=== PATIENT | female | born 1985 | race American Indian/Alaskan Native ===

== ENCOUNTER 2017-03-10 11:00 | Outpatient (CLI) | payer MEDICAID | END 2017-03-10 11:01 | disposition home or self-care (01) | LOC: SLR 11:00 | PROVIDERS: ATTEND Specialist | DX: G47.30 Sleep apnea, unspecified (principal); E66.9 Obesity, unspecified; I10 Essential (primary) hypertension | CPT/HCPCS: G0399 ==

== ENCOUNTER 2017-03-11 08:53 | Day surgery (SDC) | payer MEDICAID ==
--- NOTE | 2017-03-10 09:42 | Anesthesia Consultation ---
Anesthesia Consult and Med Hx Date of service: 03/10/17 - Airway Anesthetic Teeth Evaluation: Good ROM Head & Neck: Adequate Mental/Hyoid Distance: Adequate Mallampati Class: Class II Intubation Access Assessment: Probably Good - Pulmonary Exam CTA: Yes - Cardiac Exam Cardiac Exam: RRR - Pre-Operative Health Status ASA Pre-Surgery Classification: ASA3 Proposed Anesthetic Plan: General - Pulmonary Hx Smoking: Yes (former) - Cardiovascular System Hx Hypertension: Yes (x 2yrs) - Central Nervous System Hx Psychiatric Problems: Yes - Endocrine Hx Non-Insulin Dependent Diabetes: Yes - Hematic Hx Anemia: Yes - Other Systems Hx Cancer: No Hx Obesity: Yes (morbid obesity)
[2017-03-10 09:43] LABS: Basophils % (Auto) 0.6 % (0.0-1.8); Eosinophils % (Auto) 1.7 % (0.0-4.3); Hematocrit 26.9 % (30.3-42.9); Hemoglobin 8.9 gm/dl (10.1-14.3); Mean Corpuscular HGB Conc 33 % (30-34); Mean Corpuscular Hemoglobin 28 pg (28-32); Mean Corpuscular Volume 85 fl (79-97); Platelet Count 706 K/mm3 (140-440); Red Blood Count 3.16 M/mm3 (3.65-5.03); Red Cell Distribution Width 13.6 % (13.2-15.2)
[2017-03-10 09:55] LABS: Anion Gap 18 mmol/L; BUN/Creatinine Ratio 13; Blood Urea Nitrogen 10 mg/dL (7-17); Calcium 8.8 mg/dL (8.4-10.2); Carbon Dioxide 24 mmol/L (22-30); Chloride 102.1 mmol/L (98-107); Glucose 122 mg/dL (65-100); Potassium 3.5 mmol/L (3.6-5.0); Sodium 141 mmol/L (137-145)
[2017-03-11] MEDS ORDERED: DIPRIVAN 10 MG/ML IV ONE ×2 (09:59→11:16)
[2017-03-11] MEDS ORDERED: DILAUDID ONE (09:59)
[2017-03-11] MEDS ORDERED: NACL 0.9% 1000 ML 1,000 ML IV SCH (10:00)
[2017-03-11] MEDS ORDERED: VERSED IV NR (10:00)
[2017-03-11] MEDS ORDERED: PEPCID PO NR (10:00)
[2017-03-11] MEDS ORDERED: SILVER NITRATE TP ONE (10:24)
--- NOTE | 2017-03-11 10:30 | Short Stay Summary ---
Short Stay Documentation Date of service: 03/11/17 Narrative H&P: Pt is a 31yo BF LMP 12/11/16 presents for surgical evaluation and treatment for prolonged heavy vaginal bleeding thought to be due to suspected endometrial polyps. Pelvic u/s showed the uterus 12 x 8 x 7cm with an irregular spongy- looking endometrium. She is now scheduled for a Hysteroscopy, Polypectomy with D&C. - History Principal diagnosis: Menorrhagia H&P: obtained from office Past Medical History: arrhythmia, anemia, arthritis, diabetes, hypertension, liver disease, other (Morbid obesity) Past Surgical History: Other (BTL; Knee surgery; Bladder surgery) Social history: no significant social history, single - Allergies and Medications Current Medications: Allergies Sulfa (Sulfonamide Antibiotics) Allergy (Verified 03/06/17 15:46) swelling, rash Home Medications Medication Instructions Recorded Confirmed Last Taken Type Ferrous Sulfate 325 mg PO DAILY 03/06/17 03/06/17 Unknown History Hydrochlorothiazide [HCTZ] 25 mg PO QDAY 03/06/17 03/06/17 Unknown History Banks-3 Fatty Acids/Fish Oil [Fish 1 each PO DAILY 03/06/17 03/06/17 Unknown History Oil] Omeprazole Magnesium [PriLOSEC Otc] 20 mg PO QDAY 03/06/17 03/06/17 Unknown History Topiramate [Topamax] 25 mg PO HS 03/06/17 03/06/17 Unknown History metFORMIN [Glucophage] 500 mg PO BID 03/06/17 03/06/17 Unknown History Active Medications Famotidine (Pepcid) 20 mg PO PREOP NR Stop: 03/11/17 12:00 Last Admin: 03/11/17 10:18 Dose: 20 mg Sodium Chloride (Nacl 0.9% 1000 Ml) 1,000 mls @ 100 mls/hr IV DIRECT LATA Last Admin: 03/11/17 10:19 Dose: 100 mls/hr Midazolam HCl (Versed) 2 mg IV PREOP NR Stop: 03/11/17 23:59 Last Admin: 03/11/17 10:19 Dose: 2 mg - Physical exam General appearance: no acute distress, obese Integumentary: no rash HEENT: Atraumatic Lungs: Clear to auscultation Breasts: deferred Heart: Regular rate Gastrointestinal: normal Female Genitourinary: deferred Rectal Exam: deferred Extremities: no ischemia Neurological: Normal speech - Brief post op/procedure progress note Date of procedure: 03/11/17 Pre-op diagnosis: 1. Dysfunctional uterine bleeding 2. Endometrial polyps Post-op diagnosis: same Procedure: 1. Hysteroscopy 2. Polypectomy 3. D&C Anesthesia: MAC Findings: A 12-14 weeks size uterus with multiple polyps visible on Hysteroscopy, multiple polyps removed using the Myosure and moderate amounts of tissue obtained on curettage. Surgeon: YOLY NAIR Estimated blood loss: minimal Pathology: list (endometrial currettings and endometrial polyps) Specimen disposition: to lab Condition: stable - Hospital course Hospital course: Unremarkable. - Disposition Condition at discharge: Good Disposition: - TO HOME OR SELFCARE - Discharge Diagnoses (1) DUB (dysfunctional uterine bleeding) Status: Chronic (2) Endometrial polyp Status: Resolved Short Stay Discharge Plan Activity: no restrictions Diet: regular Follow up with: SHASHI RIDDLE MD [Primary Care Provider] - 7 Days YOLY NAIR MD [Staff Physician] - 14 Days Prescriptions: HYDROcodone/APAP 5-325 [Cerrillos 5/325] 1 each PO Q6HR PRN #20 tablet PRN Reason: Pain Ibuprofen [Motrin] 800 mg PO Q8HR PRN #30 tablet PRN Reason: Moder Pain Unrelieved By Cerrillos
[2017-03-11] MEDS ORDERED: ANCEF/STERILE WATER 2 GM/20 ML 2 GM/20 ML SYRINGE IV NR (11:00)
[2017-03-11] MEDS ORDERED: XYLOCAINE MPF 2% ONE (11:21)
[2017-03-11] MEDS ORDERED: NACL 0.9% IR ONE ×2 (11:29)
[2017-03-11] MEDS ORDERED: ZOFRAN ONE (11:48)
[2017-03-11] MEDS ORDERED: TORADOL ONE (11:48)
--- NOTE | 2017-03-11 12:56 | Operative Report ---
Operative Report Operative Report: PREOPERATIVE DIAGNOSIS: 1. Dysfunctional uterine bleeding 2. Endometrial polyps POSTOPERATIVE DIAGNOSIS: Same OPERATIVE PROCEDURE: 1. Hysteroscopy 2. Myosure endometrial biopsy 3. Dilatation and curettage. SURGEON: Mono Burleson MD ANESTHESIA: Gen. mask ANESTHESIOLOGIST: Dr. Hopkins ESTIMATED BLOOD LOSS: 20 mL's FINDINGS: A 12-14 week size uterus with multiple endometrial polyps and lush endometrial tissue COMPLICATIONS: None COUNTS: Correct x3. PROCEDURE: After the patient was correctly identified, and after general anesthesia was administered, the patient was prepped and draped in the usual sterile fashion and placed in dorsal lithotomy position. First, the bladder was emptied using a straight catheter. Next, a speculum was placed in the vaginal vault and the anterior lip of the cervix was grasped using a single- tooth tenaculum. The uterus was sounded to 12 cm. The cervical os was sequentially dilated, and the hysteroscope was introduced into the cervical canal. Visualization of endometrial cavity showed multiple endometrial polyps, and areas with lush endometrium. The Myosure was then introduced into the uterine cavity, and the device was used to removed multiple endometrial polyps. After all the polyps are removed, the Myosure was removed from the uterine cavity, and sharp curettage was performed yielding moderate amounts of endometrial tissue. All specimens were sent to pathology. At this point the procedure was considered complete. All instruments were removed from the vagina. The patient tolerated the procedure well and was transferred to the recovery room in stable condition.
--- NOTE | 2017-03-11 13:05 | Post Anesthesia Evaluation ---
- Post Anesthesia Evaluation Patient Participated: Yes Airway Patent: Yes Stable Respiratory Function: Yes Temp > 96.8F: Yes Pain Manageable: Yes Adequeate Hydration: Yes Anesthesia Complications: No
--- NOTE | 2017-03-11 13:09 | Anesthesia Day of Surgery ---
Anesthesia Day of Surgery - Day of Surgery Patient Examined: Yes Patient H&P Reviewed: Yes Patient is NPO: Yes
[2017-03-11 13:24] VITALS: BP 134/78
== END 2017-03-11 08:54 | disposition home or self-care (01) ==
LOC: OR 08:53
PROVIDERS: ATTEND Obstetrics & Gynecology
DX: N84.0 Polyp of corpus uteri (principal); I10 Essential (primary) hypertension; M19.90 Unspecified osteoarthritis, unspecified site; G43.909 Migraine, unspecified, not intractable, without status migrainosus; E11.9 Type 2 diabetes mellitus without complications; E66.01 Morbid (severe) obesity due to excess calories; Z68.43 Body mass index [BMI] 50.0-59.9, adult; Z98.890 Other specified postprocedural states; Z88.2 Allergy status to sulfonamides; Z79.84 Long term (current) use of oral hypoglycemic drugs; Z98.51 Tubal ligation status; Z87.891 Personal history of nicotine dependence
CPT/HCPCS: 36415; 58558; 80048; 82962; 84703; 85025; 88305; A4217; C1782; J0690; J1170; J1885; J2250; J2405; J2704; J7030